=== PATIENT | male | born 1985 ===

== ENCOUNTER → 2023-12-08 | Outpatient (CLI) | payer OTHER ==
[2023-12-08 17:39] LABS: Very Low Density Lipoprot Chol 33 mg/dL (6-32)
[2023-12-08 17:46] LABS: CHOL/HDL RATIO 5.7; Cholesterol 194 mg/dL (50-200); HDL Cholesterol 34 mg/dL (>39); LDL/HDL RATIO 3.7; Low Density Lipoprotein Chol 127 mg/dL (0-110); Thyroid Stimulating Hormone 0.633 uIU/mL (0.360-4.800); Triglycerides 166 mg/dL (30-160)
[2023-12-10 09:11] LABS: A/G RATIO 1.3 (1.2-2.2); BILIRUBIN, TOTAL 0.3 mg/dL (0.0-1.2); CALCIUM, SERUM 8.6 mg/dL (8.7-10.2); CREATININE, SERUM 0.98 mg/dL (0.76-1.27); GLOBULIN, TOTAL 3.2 g/dL (1.5-4.5); PROTEIN, TOTAL, SERUM 7.3 g/dL (6.0-8.5)
== END ==
LOC: LAB SHORT 16:18 → LAB 16:18
PROVIDERS: Family Medicine
DX: I10 Essential (primary) hypertension (principal)
CPT/HCPCS: 80053; 80061; 83735; 84443

== ENCOUNTER 2025-03-26 09:13 | Emergency (ER) | payer OTHER ==
[~2025-03-26] VITALS: Ht 182.9 cm; Wt 149.7 kg
[2025-03-26] MEDS ORDERED: TiZANidine HCl 4 MG Tab PO ONE (10:20)
[2025-03-26] MEDS ORDERED: Ibuprofen 400 MG Tab PO ONE (10:20)
[2025-03-26] MEDS ORDERED: Lidocaine 4% 1 Patch TOP ONE (10:20)
[2025-03-26 11:31] VITALS: BP 172/122
== END 2025-03-26 11:40 | disposition home or self-care (01) ==
LOC: ER 09:13
DX: S33.5XXA Sprain of ligaments of lumbar spine, initial encounter (principal); X58.XXXA Exposure to other specified factors, initial encounter
CPT/HCPCS: 99283; A9270